=== PATIENT | female | born 2000 | race Caucasian/White ===

== ENCOUNTER 2020-10-05 23:44 | Emergency (ER) | payer OTHER, MEDICAID ==
[~2020-10-05] VITALS: Ht 165.1 cm; Wt 56.7 kg
[~2020-10-05 23:44] MED LIST: ACETAMINOPHEN-1 EAC1 PO; CLEOCIN HCL150 MG PO; IBUPROFEN 800800 M1 PO; LIDOCAINE VISC100 M1 SWISH&SPIT; NORCO 5-325 TA1 EAC1 PO; PENICILLIN V P500 MG PO
[2020-10-06 01:10] VITALS: BP 112/62
== END 2020-10-06 01:10 | disposition home or self-care (01) ==
LOC: M.ERS 23:44
DX: B34.9 Viral infection, unspecified (principal); Z20.822 Contact with and (suspected) exposure to COVID-19; Z98.890 Other specified postprocedural states